=== PATIENT | female | born 1945 | race Caucasian/White ===

== ENCOUNTER → 2021-04-05 | Outpatient (CLI) | payer MEDICARE, OTHER ==
--- NOTE | 2021-04-05 14:31 | MR ---
EXAMINATION TYPE: MR lumbar spine wo con DATE OF EXAM: 04/05/2021 COMPARISON: Scoliosis pain x4 years a separate report for are a good time a in HISTORY: Scoliosis, pain x 4 years TECHNIQUE: Multiplanar, multisequence images of the lumbar spine were acquired. L1-L2: There is a disc bulge with mild bilateral facet arthropathy without sequelae. L2-L3: There is a disc bulge with mild bilateral facet arthropathy resulting in moderate right neural foraminal narrowing. L3-L4: There is a disc bulge with moderate bilateral facet arthropathy resulting in moderate bilatera l neural foraminal narrowing and mild central canal stenosis. L4-L5: There is a disc bulge with mild bilateral facet arthropathy results in mild left neural forami nal narrowing. L5-S1: There is a disc bulge with mild bilateral facet arthropathy resulting in moderate bilateral ne ural foraminal narrowing. Lumbar segments are intact. No paraspinal masses are identified. Conus medullaris has a normal appe arance. 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 Abdominal aorta is ectatic measuring up to 2.9 cm.
== END | disposition home or self-care (01) ==
LOC: RADMRIMAIN 11:48
PROVIDERS: ATTEND Psychiatry & Neurology Neurology
DX: M51.36 Other intervertebral disc degeneration, lumbar region (principal); I77.811 Abdominal aortic ectasia
CPT/HCPCS: 72148

== ENCOUNTER → 2022-12-24 | Outpatient (CLI) | payer MEDICARE, OTHER ==
--- NOTE | 2022-12-24 13:20 | MR ---
EXAMINATION TYPE: MR selwynine/lspine wo con DATE OF EXAM: 12/24/2022 COMPARISON: MRI lumbar spine dated 04/05/2021 HISTORY: Neck pain that radiates into both arms, low back pain that radiates down both legs TECHNIQUE: Multiplanar, multisequence imaging of the cervical spine and lumbar spine is performed wit hout IV contrast. FINDINGS: MRI cervical spine: The craniovertebral junction relationships and prevertebral soft tissues are normal. There is loss of normal cervical lordosis. There is moderate degenerative disc disease with moderate disc space narrowing and mild spondylosis a t the C3-4, C4-5, C5-6 and C6-7 levels. There is no cervical disc herniation. There is moderate spondylosis at the C5-6 level resulting in moderate mass effect on the ventral aspe ct of thecal sac. The cervical cord is normal in size and signal intensity and there is no cervical stenosis. There is mild neural foraminal stenosis at the C3-4 level on the left. MRI lumbar spine The lumbar vertebral segments are normal in height and alignment and there is no fracture subluxation . There is moderate degenerative disc disease at the L1-2, L2-3 and L3-4 levels where there is moderate disc space narrowing, spondylosis and discogenic endplate changes. There is moderate to severe degen erative disease with moderate to severe disc space narrowing at the L4-5 and L5-S1 levels. Graft ther e are no lumbar disc herniations. There is no spinal stenosis. There is mild neural foraminal stenosis from L1 through S1 on the left and in the upper lumbar spine from L1 through L3 on the right. The paraspinal soft tissues are unremarkable. IMPRESSION: 1. Moderate degenerative disc disease in the cervical spine without cervical disc herniation or cervi markus stenosis. 2. Moderate to severe degenerative disc disease throughout the lumbar region with no lumbar disc her niation or spinal stenosis. No interval change compared to previous. 3. Multilevel neural foraminal encroachment in the lumbar spine as described above. 4 mild neural foraminal stenosis at the L3-4 level on the left. 5. 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
== END | disposition home or self-care (01) ==
LOC: RADMRIMAIN 11:28
PROVIDERS: ATTEND Psychiatry & Neurology Neurology
DX: M50.321 Other cervical disc degeneration at C4-C5 level (principal); M51.36 Other intervertebral disc degeneration, lumbar region; M48.061 Spinal stenosis, lumbar region without neurogenic claudication; M99.73 Connective tissue and disc stenosis of intervertebral foramina of lumbar region
CPT/HCPCS: 72141; 72148